=== PATIENT | male | born 1960 | race African-American/Black ===

== ENCOUNTER 2017-02-11 09:05 | Emergency (ER) | payer OTHER, SELFPAY ==
[2017-02-11] MEDS ORDERED: Lorazepam 0.5 MG TAB ONE (09:25)
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
== END 2017-02-11 10:00 | disposition home or self-care (01) ==
LOC: BURERS 09:05
DX: S16.1XXA Strain of muscle, fascia and tendon at neck level, initial encounter (principal); F41.9 Anxiety disorder, unspecified; I10 Essential (primary) hypertension; M19.90 Unspecified osteoarthritis, unspecified site; E11.9 Type 2 diabetes mellitus without complications; Z87.891 Personal history of nicotine dependence; Z79.82 Long term (current) use of aspirin; Z79.899 Other long term (current) drug therapy; V69.40XA Driver of heavy transport vehicle injured in collision with unspecified motor vehicles in traffic accident, initial encounter
CPT/HCPCS: 36416; 71010; 72125

== ENCOUNTER 2021-07-14 16:54 | Emergency (ER) | payer BC ==
[2021-07-14] MEDS ORDERED: Dexamethasone 4 MG TAB ONE (17:30)
== END 2021-07-14 17:44 | disposition home or self-care (01) ==
LOC: BURERS 16:54
DX: G89.4 Chronic pain syndrome (principal); E11.9 Type 2 diabetes mellitus without complications; G47.33 Obstructive sleep apnea (adult) (pediatric); E03.9 Hypothyroidism, unspecified; Z87.891 Personal history of nicotine dependence
CPT/HCPCS: 99283; J8540